=== PATIENT | male | born 1960 ===

== ENCOUNTER → 2018-04-28 | Outpatient (CLI) | payer OTHER ==
--- NOTE | 2018-05-02 21:42 | SLE ---
Formerly [facility] [address] [place] [address] POLYSOMNOGRAPHY STUDY Name: KAROLYN OROZCO Room #: REG [facility]#: [id number] Admission: 04/28/18 Attend Phys: Leo Knowles MD Discharge: Date of : 60 Report #: [id number] THIS REPORT FOR: //name// CC: Leo Knowles FAM unknown Rene Hurt MD DATE OF SERVICE: 04/28/2018 ATTENDING PHYSICIAN: Dr. Rene Hurt. The patient is 57 years old who weighs 188 pounds and is 68 inches tall with a BMI of 28.6. The patient's [place] score was 10. The patient underwent a split night study performed at [facility]. During the night study, the patient spent 447 minutes in bed and slept for 239 minutes with a sleep efficiency of 53.6%, which was low. Sleep latency was 17.5 minutes with a REM latency of 355 minutes, which was prolonged. Overall, sleep architecture showed increased stage 1 sleep, normal stage 2 sleep, normal N3 sleep and reduced REM sleep, which was 11% of the total sleep time. During the initial diagnostic portion of the study, the patient slept for 127 minutes. During that time, the patient had 10 obstructive apneas and no mixed or central apneas and 93 hypopneas. The patient's apnea-hypopnea index was 48.7 per hour. REM sleep was not seen during the diagnostic portion of the study and supine sleep was not observed either. EKG monitoring revealed an average heart rate of 58 beats per minute with a maximum of 78 beats per minute. No sustained arrhythmias observed. PLMS were seen at an index of 16.5 per hour and 5 per hour caused EEG arousals. Nocturnal oximetry study revealed an average oxygen saturation 92% with a loss of 85%. 15 minutes were spent in oxygen saturation of less than 89%. The patient met the criteria for CPAP initiation. It was started at 5 cm of water and titrated up to 12 cm of water. At the final pressure, the patient slept for 56 minutes. The patient had 17.5 minutes of lateral REM sleep. The patient's AHI was reduced to 0 per hour and oxygen saturation remained above 93%. IMPRESSION: 1. Severe sleep apnea-hypopnea syndrome with an apnea-hypopnea index of 48.7 per hour. 2. Mild periodic limb movements during sleep. Formerly [facility] [address] [place] [address] POLYSOMNOGRAPHY STUDY Name: KAROLYN OROZCO [id number] Admission: 04/28/18 Attend Phys: Leo Knowles MD Discharge: Date of : 60 Report #: [id number] 3. Nocturnal hypoxia secondary to obstructive sleep apnea, but resolved with CPAP. RECOMMENDATIONS: 1. CPAP at 12 cm of water completely eliminated the patient's sleep apnea and should be used on a nightly basis. 2. Follow up in 4-6 weeks to assess compliance with CPAP and to document clinical improvement. 3. Weight loss is advised. 4. Avoid HEAD LINEMAN depressants. 5. Cautioned regarding driving until symptoms of sleep apnea have resolved with the use of CPAP. 6. The patient's insomnia should also be further evaluated if it persists despite effective use of CPAP. <ELECTRONICALLY SIGNED> By: Leo Knowles MD 05/02/18 [id number] Leo Knowles MD /nt
== END ==
LOC: SLEEPLAB 04-14 14:26
DX: G47.33 Obstructive sleep apnea (adult) (pediatric) (principal); G47.61 Periodic limb movement disorder; R09.02 Hypoxemia